=== PATIENT | female | born 1935 | race Caucasian/White ===

== ENCOUNTER 2017-10-15 14:06 | Outpatient (CLI) ==
[2017-10-21 04:02] VITALS: BMI 25.2
== END 2017-10-15 14:07 | disposition home or self-care (01) ==
LOC: NONPT 14:06
PROVIDERS: ATTEND Emergency Medicine
DX: R30.0 Dysuria (principal)
CPT/HCPCS: 81001; 87086; 87186

== ENCOUNTER 2017-10-21 03:51 | Inpatient (IN) ==
[2017-10-21] MEDS ORDERED: MORPHINE 2 MG/ML SYRINGE IM STA (04:07)
[2017-10-21] MEDS ORDERED: ZOFRAN 4 MG/2 ML IM STA (04:07)
--- NOTE | 2017-10-21 04:11 | ED.PDOC ---
General ED Provider: Dr. VICENTE MULLER Chief Complaint: Chest Pain Stated Complaint: Patient is sent from the [place] for the chest pain, and elevated BP. given 2 nitro and asa. now pain free. c/o neck and lower back pain, Time Seen by Physician: 04:09 Mode of Arrival: Ambulance Information Source: Patient, EMT Primary Care Provider: [facility] Nursing and Triage Documentation Reviewed and Agree: Yes Does patient meet sepsis criteria?: Yes If yes, has appropriate treatment been initiated?: No System Inflammatory Response Syndrome: Not Applicable Sepsis Protocol: For patient's 13 years and over: Temp is 96.8 and below OR 101 and greater Pulse >90 BPM Resp >20/minute Acutely Altered Mental Status Are patient's symptoms suggestive of a new infection, such as: -Pneumonia -Skin, Soft Tissue -Endocarditis -UTI -Bone, Joint Infection -Implantable Device -Acute Abdominal Infection -Wound Infection -Meningitis -Blood Stream Catheter Infection -Unknown Cardiovascular Complaint Exam - Chest Pain Complaint/Exam Onset: Gradual Symptoms Are: Resolved Timing: Constant Initial Severity: Moderate Current Severity: Moderate Location: Reports: Midsternal Pain Radiates: Reports: Back Character: Reports: Dull, Aching Aggravating: Reports: None Alleviating: Reports: Nitro, EMS treatment Associated Signs and Symptoms: Reports: Nausea, Back pain. Denies: Diaphoresis , Vomiting, Fever, Palpitations, Cough, Hemoptysis, Abdominal pain, Dizziness, Short of air, Calf pain, Calf swelling Related History: Reports: Similar episode Related Surgical History: Reports: None History of Healthcare-Acquired Pneumonia: Reports: No AMI/ACS Risk Factors: Reports: Nitroglycerine use, Hypertension TAD Risk Factors: Reports: None Pulmonary Embolism Risk Factors: Reports: None Prior Care for this Complaint: No Recent Stress Test: No Recent Echo/LV Function: No JVD Present: No Subcutaneous Emphysema Present: No Diminshed Breath Sounds: No Reproducible Chest Wall Pain: No Bilateral Pulses Present: No Unequal Pulses Noted: No If Risk Factors for AMI/ACS Consider: EKG, Cardiac Enzymes, Serial Studies Differential Diagnoses: ACS, Stable Angina Quality Indicators For Acute DC or Cardiac Chest Pain: EKG in 10min. Review of Systems - Review Of Systems Constitutional: Reports: No symptoms Eyes: Reports: No symptoms Ears, Nose, Mouth, Throat: Reports: No symptoms Respiratory: Reports: No symptoms Cardiac: Reports: Chest pain GI: Reports: No symptoms : Reports: No symptoms Musculoskeletal: Reports: No symptoms Skin: Reports: No symptoms Neurological: Reports: No symptoms Endocrine: Reports: No symptoms Hematologic/Lymphatic: Reports: No symptoms All Other Systems: Reviewed and Negative Past Medical History - Past Medical History Previously Healthy: Yes Endocrine: Reports: Dyslipidemia Cardiovascular: Reports: Hypertension, CHF Respiratory: Reports: None Hematological: Reports: Anemia Gastrointestinal: Reports: GERD Genitourinary: Reports: None Neuro/Psych: Reports: Anxiety, Depression Musculoskeletal: Reports: Arthritis, Back Pain, Joint Pain Cancer: Reports: None Last Menstrual Period: UNKNOWN - Surgical History General Surgical History: Reports: Hysterectomy, Appendectomy, Cholecystectomy - Family History Family History: Reports: None - Social History Smoking Status: Never smoker Hx Substance Use: No Alcohol Screening: None - Immunizations Tetanus Shot up to Date: (UNKNOWN) Physical Exam - Physical Exam Appearance: Ill-appearing, Thin Ill-appearing: Mild Pain Distress: Mild Eyes: EOMI, Conjunctiva clear ENT: Ears normal, Nose normal, Oropharynx normal Respiratory: Airway patent, Breath sounds clear, Breath sounds equal, Respirations nonlabored Cardiovascular: RRR, Pulses normal, No rub, No murmur GI/: Soft, Nontender, No masses, Bowel sounds normal, No Organomegaly Musculoskeletal: Normal strength, ROM intact, No edema, No calf tenderness Skin: Warm, Dry, Normal color Neurological: Sensation intact, Motor intact, Reflexes intact, Cranial nerves intact, Alert, Oriented Psychiatric: Affect appropriate, Mood appropriate Interpretation - Radiology Interpretation Radiology Interpretation By: Radiologist Radiology Results: Positive Exam Interpreted: CT Scan Critical Care Note - Critical Care Note Total Time (mins): 30 Course - Course Hematology/Chemistry: 10/21/17 04:30 10/21/17 04:30 Orders, Labs, Meds: Lab Review 10/21/17 10/21/17 10/21/17 04:30 04:30 04:30 WBC 6.20 RBC 3.29 L Hgb 9.7 L Hct 28.3 L MCV 86.0 MCH 29.5 MCHC 34.3 RDW Coeff of Viviana 13.6 Plt Count 192 Immature Gran % (Auto) 2.1 Neut % (Auto) 66.7 Lymph % (Auto) 9.7 L [place] % (Auto) 20.0 H Eos % (Auto) 1.0 Baso % (Auto) 0.5 Immature Gran # (Auto) 0.1 Neut # (Auto) 4.1 Lymph # (Auto) 0.6 [place] # (Auto) 1.2 Eos # (Auto) 0.1 Baso # (Auto) 0.0 D-Dimer (Manual) Sodium 128 L Potassium 4.4 Chloride 95 L Carbon Dioxide 26 Anion Gap 11.4 BUN 13 Creatinine 0.70 Estimated GFR (MDRD) 81.00 BUN/Creatinine Ratio 18.57 Glucose 91 Calcium 8.5 Total Bilirubin 0.3 AST 21 ALT 19 Alkaline Phosphatase 81 Total Creatine Kinase 162 CK-MB (CK-2) 2.4 CK-MB (CK-2) % 1.12364 Troponin I 0.0500 B-Natriuretic Peptide 354 H Total Protein 5.7 L Albumin 2.4 L Globulin 3.3 Albumin/Globulin Ratio 0.73 Amylase 30 Lipase 8 10/21/17 04:30 WBC RBC Hgb Hct MCV MCH MCHC RDW Coeff of Viviana Plt Count Immature Gran % (Auto) Neut % (Auto) Lymph % (Auto) [place] % (Auto) Eos % (Auto) Baso % (Auto) Immature Gran # (Auto) Neut # (Auto) Lymph # (Auto) [place] # (Auto) Eos # (Auto) Baso # (Auto) D-Dimer (Manual) 531.98 Sodium Potassium Chloride Carbon Dioxide Anion Gap BUN Creatinine Estimated GFR (MDRD) BUN/Creatinine Ratio Glucose Calcium Total Bilirubin AST ALT Alkaline Phosphatase Total Creatine Kinase CK-MB (CK-2) CK-MB (CK-2) % Troponin I B-Natriuretic Peptide Total Protein Albumin Globulin Albumin/Globulin Ratio Amylase Lipase Orders Category Date Time Status EKG-(ED ONLY) Stat CARDIO 10/21/17 04:07 Completed AMYLASE Stat LAB 10/21/17 04:30 Completed B-TYPE NATRIURETIC PEPTIDE Stat LAB 10/21/17 04:30 Completed CBC W/ AUTO DIFF Stat LAB 10/21/17 04:30 Completed COMPREHENSIVE METABOLIC PANEL Stat LAB 10/21/17 04:30 Completed CREATINE KINASE Stat LAB 10/21/17 04:30 Completed D-DIMER Stat LAB 10/21/17 04:30 Completed LIPASE Stat LAB 10/21/17 04:30 Completed TROPONIN I Stat LAB 10/21/17 04:30 Completed URINALYSIS C & S IF INDICATED Stat LAB 08/07/18 04:07 Uncollected Morphine Sulfate [Morphine 2 mg/ml Syringe] MEDS 10/21/17 04:26 Discontinued 2 mg IVP ONCE STA Ondansetron HCl/Pf [Zofran 4 mg/2 ml] MEDS 10/21/17 04:26 Discontinued 4 mg IVP ONCE STA CT CHEST W/O CONTRAST Stat RADS 10/21/17 04:07 Completed Medications Discontinued Medications Generic Name Dose Route Start Last Admin Trade Name Sbq PRN Reason Stop Dose Admin Morphine Sulfate 2 mg 10/21/17 04:26 10/21/17 04:31 Morphine 2 Mg/Ml Syringe IVP 10/21/17 04:27 2 mg ONCE STA Administration Ondansetron HCl 4 mg 10/21/17 04:26 10/21/17 04:32 Zofran 4 Mg/2 Ml IVP 10/21/17 04:27 4 mg ONCE STA Administration Vital Signs: Temp Pulse Resp BP Pulse Ox 10/21/17 03:48 98.2 F 70 16 135/77 95 MYLES Risk Score MYLES Risk Score: Risk Score Odds of by 30D 0 0.1 (0.1-0.2) 1 0.3 (0.2-0.3) 2 0.4 (0.3-0.5) 3 0.7 (0.6-0.9) 4 1.2 (1.0-1.5) 5 2.2 (1.9-2.6) 6 3.0 (2.5-3.6) 7 4.8 (3.8-6.1) Departure - Departure Time of Disposition: 06:29 Disposition: ADMITTED INPATIENT Discharge Problem: Chest pain Pneumonia Qualifiers: Pneumonia type: due to unspecified organism Laterality: left Lung location: lower lobe of lung Qualified Code(s): J18.1 - Lobar pneumonia, unspecified organism Instructions: Chest Pain (ED) Condition: Stable Pt referred to PMD for follow-up: Yes IPMP verified?: No Allergies/Adverse Reactions: Allergies digoxin Allergy (Severe, Unverified 10/21/17 04:00) SOB Home Medications: Ambulatory Orders Acetaminophen [Tylenol] 325 mg PO PRN PRN 10/21/17 Amiodarone HCl 200 mg PO DAILY 10/21/17 Apixaban [Eliquis] 5 mg PO BID 10/21/17 Bisacodyl [Dulcolax] 10 mg PO DAILY 10/21/17 Bumetanide 0.5 mg PO DAILY 10/21/17 Buspirone HCl 5 mg PO DAILY 10/21/17 Docusate Sodium [Colace] 100 mg PO DAILY 10/21/17 Esomeprazole Magnesium [Nexium] 40 mg PO DAILY 10/21/17 Hydroxyzine Pamoate [Vistaril] 25 mg PO BID 10/21/17 Levothyroxine Sodium [Synthroid] 50 mcg PO DAILY 10/21/17 Lidocaine [Lidoderm] 1 patch EXTERNAL DAILY 10/21/17 Lisinopril [Zestril] 5 mg PO DAILY 10/21/17 Melatonin/Pyridoxine [Melatonin 5 mg Tablet] 1 tab PO BEDTIME 10/21/17 Morphine Sulfate [Ms Contin] 15 mg PO BID 10/21/17 Nitrofurantoin Macrocrystal [Macrodantin] 100 mg PO BID 10/21/17 Nitroglycerin [Nitrostat] 0.4 mg PO Q5MIN PRN 10/21/17 Ondansetron HCl [Zofran] 4 mg PO Q6H PRN 10/21/17 Oxybutynin Chloride [Ditropan Xl] 15 mg PO DAILY 10/21/17 Oxycodone HCl/Acetaminophen [Oxycodone-Acetaminophen 10-325] 1 tab PO QID Polyethylene Glycol 3350 [Miralax] 17 gm PO DAILY 10/21/17 Disposition Discussed With: Patient
[2017-10-21] MEDS ORDERED: ZOFRAN 4 MG/2 ML IVP STA (04:26)
[2017-10-21] MEDS ORDERED: MORPHINE 2 MG/ML SYRINGE IVP STA (04:26)
--- NOTE | 2017-10-21 04:44 | CT ---
EXAM: CT of the chest without contrast. HISTORY: Chest pain. PROCEDURE: Contiguous axial CT images of the chest without contrast with coronal and sagittal reform ats. FINDINGS: The heart is mildly enlarged. The thoracic aorta is within normal limits in diameter. The re are atherosclerotic calcifications in the thoracic aorta. There are coronary artery calcifications . There are calcified hilar lymph nodes. There is minimal left basilar consolidation. There is minim al right basilar dependent atelectasis. There are anterior wedging deformities of the T7 and L2 verte bral bodies with up to 25% loss of vertebral body height, age indeterminate. There is a dorsal colum n stimulator. There is a moderate hiatal hernia. There is a 1.9 cm indeterminate left adrenal nodule. The right adrenal gland and liver are normal in appearance. Impression: Minimal left basilar consolidation consistent with atelectasis and/or pneumonia. Minimal right basilar dependent atelectasis. Cardiomegaly. Atherosclerotic vascular disease. Moderate hiatal hernia. Anterior wedging deformities of the T7 and L2 vertebral bodies as described, age indeterminate. 1.9 cm indeterminate left adrenal nodule. Recommend follow-up CT in 3 months to confirm stability.
[2017-10-21] MEDS ORDERED: TYLENOL PO PRN (06:30)
[2017-10-21] MEDS ORDERED: ZOFRAN TAB PO PRN (06:34)
[2017-10-21] MEDS ORDERED: NITROSTAT SL PRN (06:34)
[2017-10-21 08:10] VITALS: BMI 25.4
[2017-10-21] MEDS: LIDODERM PATCH 5% TP SCH (08:50)
[2017-10-21] MEDS: SODIUM CHLORIDE 1,000 ML IV SCH ×2 (08:51→23:24)
[2017-10-21] MEDS: ROCEPHIN 1 GM in SODIUM CHLORIDE 50 ML IV SCH ×2 (08:51→09:22)
[2017-10-21] MEDS: DULCOLAX PO SCH (08:51)
[2017-10-21] MEDS: MIRALAX PO SCH (08:51)
[2017-10-21] MEDS: DITROPAN XL PO SCH (08:52)
[2017-10-21] MEDS: COLACE PO SCH (08:52)
[2017-10-21] MEDS: SOLU-MEDROL 40 MG IVP SCH ×3 (08:52→20:38)
[2017-10-21] MEDS: PROTONIX PO SCH (08:52)
[2017-10-21] MEDS: BUSPAR PO SCH (08:52)
[2017-10-21] MEDS: ZESTRIL PO SCH (08:53)
[2017-10-21] MEDS: VISTARIL PO SCH ×2 (08:53→20:38)
[2017-10-21] MEDS: BUMEX PO SCH (08:53)
[2017-10-21] MEDS: CORDARONE PO SCH (08:53)
[2017-10-21] MEDS: SYNTHROID PO SCH (08:53)
[2017-10-21] MEDS: PERCOCET 10-325 PO SCH ×4 (08:54→20:39)
[2017-10-21] MEDS: ELIQUIS PO SCH ×2 (08:57→20:39)
[2017-10-21] MEDS ORDERED: MS CONTIN PO SCH (09:00)
[2017-10-21] MEDS ORDERED: NON-FORMULARY MEDICATION (Bumetanide [Bumetanide] 0.5 MG) PO SCH (09:00)
[2017-10-21] MEDS ORDERED: NON-FORMULARY MEDICATION (Esomeprazole Magnesium [Nexium] 40 MG) PO SCH (09:00)
[2017-10-21] MEDS ORDERED: NON-FORMULARY MEDICATION (Oxybutynin Chloride [Ditropan Xl] 15 MG) PO SCH (09:00)
[2017-10-21] MEDS ORDERED: NON-FORMULARY MEDICATION (Buspirone Hcl [Buspirone Hcl] 5 MG) PO SCH (09:00)
[2017-10-21] MEDS: DUONEB NEB SCH ×3 (11:13→22:43)
[2017-10-21] MEDS: MS CONTIN PO SCH (20:39)
[2017-10-21] MEDS: MELATONIN PO SCH (20:39)
[2017-10-21] MEDS: PYRIDOXINE PO SCH (20:39)
[2017-10-22] MEDS: DUONEB NEB SCH ×4 (04:53→22:25)
[2017-10-22] MEDS: PROTONIX PO SCH (05:34)
[2017-10-22] MEDS: SYNTHROID PO SCH (05:34)
[2017-10-22] MEDS: DULCOLAX PO SCH (09:09)
[2017-10-22] MEDS: ZESTRIL PO SCH (09:09)
[2017-10-22] MEDS: MIRALAX PO SCH (09:09)
[2017-10-22] MEDS: BUMEX PO SCH (09:09)
[2017-10-22] MEDS: COLACE PO SCH (09:10)
[2017-10-22] MEDS: DITROPAN XL PO SCH (09:10)
[2017-10-22] MEDS: MS CONTIN PO SCH ×2 (09:10→21:16)
[2017-10-22] MEDS: VISTARIL PO SCH ×2 (09:10→21:16)
[2017-10-22] MEDS: CORDARONE PO SCH (09:10)
[2017-10-22] MEDS: BUSPAR PO SCH (09:10)
[2017-10-22] MEDS: ELIQUIS PO SCH ×2 (09:10→21:11)
[2017-10-22] MEDS: PERCOCET 10-325 PO SCH ×4 (09:10→21:16)
[2017-10-22] MEDS: ROCEPHIN 1 GM in SODIUM CHLORIDE 50 ML IV SCH (09:11)
[2017-10-22] MEDS: LIDODERM PATCH 5% TP SCH (09:12)
[2017-10-22] MEDS: SOLU-MEDROL 40 MG IVP SCH ×2 (10:18→21:12)
--- NOTE | 2017-10-22 10:48 | PN ---
DATE OF SERVICE: 10/21/17 SUBJECTIVE: The patient was seen and examined in the emergency room. Agree with the present management. TIME SPENT: More than 35 minutes [email or web address]
[2017-10-22] MEDS: ZOFRAN 4 MG/2 ML IVP PRN (11:49)
--- NOTE | 2017-10-22 15:46 | RS.PTINEVL ---
Subjective - Patient information Date of Evaluation: 10/22/17 Date of Arrival on Unit: 10/21/17 Admitted From:: Custodial Diagnosis: pneumonia, chest pain, elevated BP Usual Living Arrangement: Custodial Living Arrangement Comments: Resides at [facility] Environment: Level/No stairs Medical History: Hypertension, CHF, Arthritis Medical History Comments:: anxiety, depressioin, GERD, ASHD, back pain, CAD, Afib LATEX ALLERGY?: No Surgical History: Lumbar Spine, Cholecystectomy Medications: see chart Subjective Information/ Patient Comments:: pt states "I am not doing any good." pt states "I don't know where I am going to go." - Level of function Prior to this admission, the patient could do the following:: Partially Dependent Ambulation Abilities prior to this admission: pt poor historian, states that she walked sometimes with walker. Current Level of Function: Partially Dependent Current Equipment Used at Home: rwx Pain Assessement - Location lumbar Description: Aching Intensity: 6 Pain Behavior: Facial Grimacing Pain Aggravating Factors: Changing Position, Standing, Walking Pain Alleviating Factors: Medication Interventions - Objective Patient Orientation: Person, Place Current Interventions: IV's Range of Motion - ROM Right Upper Extremity AROM: Moderate limitation (pt with limited R shld flex.) Left Upper Extremity AROM: WFL's Right Lower Extremity AROM: WFL's Left Lower Extremity AROM: WFL's Muscle Strength - Muscle Strength Right Upper Extremity Strength: Mild Weakness (shld flex 3-/5, elbow flex/ext 4- /5, decreased block breaker) Left Upper Extremity Strength: Mild Weakness (shld flex 4-/5, elbow flex/ext 4/5 , decreased block breaker strength.) Right Lower Extremity Strength: Mild Weakness (hip flex 4-/5, knee flex/ext 4/5 , ankle DF/PF 4/5) Left Lower Extremity Strength: Mild Weakness (hip flex 4-/5, knee flex/ext 4/5, ankle DF/PF 4/5) Sensation - Sensation Right Upper Extremity Sensation: Intact/Normal Left Upper Extremity Sensation: Intact/Normal Right Lower Extremity Sensation: Intact/Normal Left Lower Extremity Sensation: Intact/Normal Palpation Palpation Findings: Tenderness Comments:: tenderness to palpation BLE Balance - Sitting Balance and Reactions Static Sitting Balance: Fair Dynamic Sitting Balance: Fair Sitting Equilibrium Reactions: Delayed Left, Delayed Right Sitting Protective Reactions: Delayed Left, Delayed Right - Standing Balance and Reactions Static Standing Balance: Poor Dynamic Standing Balance: Poor Standing Equilibrium Reactions: Delayed Left, Delayed Right Standing Protective Reactions: Delayed Left, Delayed Right Functional Mobility - Bed Mobility Rolling R/L: CGA Supine to Sit: Min Assist Sit to Supine: Min Assist - Transfers Sit to Stand: Min Assist Stand to Sit: Min Assist - Safety Awareness Safety Awareness: Fair RUTH INDEX SCORE: n/a Ambulation - Ambulation Assistive Device Used: Rolling Walker Orthotic/Prosthetic Device: No Distance: 100ft Assistance needed with Ambulation: CGA Quality of Ambulation: CGA x 1 +1 for IV Gait Deviations: Narrow Based gait, Forward posture, Short stride Treatment time - Time with patient Length of Evaluation: 24 Total treatment time: 24 Patient Education - Education Patient Education: Activity Modification, Education of Plan of Care Teaching Recipient: Patient Teaching Methods: Discussion (discussion with patient regarding POC) Assessment - Assessment Problem List:: Decreased level of function, Requires training/education, Decreased safety/Risk of falls, Weakness, Pain limits previous level of function , Cognitive status limits abilities Rehab Potential: Good Further Therapy Indicated?: Yes Candidate for Swing Bed for Therapy Services?: pt may not be a candidate for swing bed due to resident of snf Evaluation Complexity: HISTORY: Medium (HTN, pneumonia, CHF, Afib, ), EXAM OF BODY SYSTEMS: Medium (pain, strength, balance, gait,), CLINICAL PRESENTATION: Medium, CLINICAL DECISION MAKING: Medium Short Term Goals GOAL #1: pt demonstrate rolling and scooting up in bed with bedrails Goal to be met by: 10/25/17 GOAL #2: pt transfer sup to/from sit to/from stand CGA Goal to be met by: 10/25/17 GOAL #3: pt amb with rwx 125ft with CGA with no LOB Goal to be met by: 10/25/17 GOAL #4: pt with improved BLE strength 4/5 Goal to be met by: 10/25/17 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 R 26.81 balance impaired. M62.81 muscle weakness. Has the Physician been added for Co-signature?: Yes
[2017-10-22] MEDS ORDERED: BUSPAR PO ONE (16:32)
[2017-10-22] MEDS: PYRIDOXINE PO SCH (21:12)
[2017-10-22] MEDS: MELATONIN PO SCH (21:12)
[2017-10-23] MEDS: SODIUM CHLORIDE 1,000 ML IV SCH (01:51)
[2017-10-23] MEDS: DUONEB NEB SCH ×4 (04:36→21:52)
[2017-10-23] MEDS: SYNTHROID PO SCH (05:56)
[2017-10-23] MEDS: PROTONIX PO SCH (05:56)
[2017-10-23] MEDS ORDERED: CEPACOL SORE THROAT LOZENGE MUCOUSMEMB PRN (08:24)
[2017-10-23] MEDS ORDERED: CITRATE OF MAGNESIA PO STA (08:26)
[2017-10-23] MEDS: ROCEPHIN 1 GM in SODIUM CHLORIDE 50 ML IV SCH (08:32)
[2017-10-23] MEDS: BUSPAR PO SCH (08:32)
[2017-10-23] MEDS: SOLU-MEDROL 40 MG IVP SCH (08:32)
[2017-10-23] MEDS: MIRALAX PO SCH (08:32)
[2017-10-23] MEDS: ZOFRAN 4 MG/2 ML IVP PRN (08:32)
[2017-10-23] MEDS: ELIQUIS PO SCH (08:33)
[2017-10-23] MEDS: BUMEX PO SCH (08:33)
[2017-10-23] MEDS: DITROPAN XL PO SCH (08:34)
[2017-10-23] MEDS: VISTARIL PO SCH (08:34)
[2017-10-23] MEDS: ZESTRIL PO SCH (08:34)
[2017-10-23] MEDS: MS CONTIN PO SCH (08:34)
[2017-10-23] MEDS: PERCOCET 10-325 PO SCH ×3 (08:34→16:52)
[2017-10-23] MEDS: DULCOLAX PO SCH (08:34)
[2017-10-23] MEDS: COLACE PO SCH (08:34)
[2017-10-23] MEDS: CORDARONE PO SCH (08:35)
[2017-10-23] MEDS: LIDODERM PATCH 5% TP SCH (09:32)
--- NOTE | 2017-10-23 09:58 | PN ---
DATE OF SERVICE: 10/22/17 SUBJECTIVE: The patient was admitted from the emergency room for left lower lobe pneumonia and Chest pain. The patient complains about the pain from lower back to the upper back and says that she has been more anxious. She gets the Buspar and says that it is not helping. REVIEW OF SYSTEMS: CONSTITUTIONAL: No fever, no chills. HEENT: Normal. ENDOCRINE: No weight gain, no weight loss. CVS: No angina symptoms. No CHF symptoms. No palpitations. No atypical chest pain for CAD. No shortness of breath. No PND, no orthopnea. RESPIRATORY: No cough, no hemoptysis. GI: No nausea, no vomiting. No abdominal pain. : No hematuria. No polyuria. MUSCULOSKELETAL: No joint swelling. PSYCHIATRIC: Not anxious. No depression. No suicidal thoughts. No homicidal thoughts. SKIN: Intact. No rash. PHYSICAL EXAMINATION: V/S: Blood pressure 134/74, respiratory rate 20, heart rate 72, temperature 98.0 with saturation 98 HEENT: Normocephalic, atraumatic. Mucosa dry, Pallor positive. No icterus. NECK: Supple. No JVD, no carotid bruit. No lymphadenopathy. LUNGS: Decreased and basilar crackles. No rales or rhonchi. HEART: S1, S2 normal. No S3. No murmur, gallop or regurgitation. ABDOMEN: Soft, nontender. Bowel sounds active. No rigidity. No rebound or guarding. No CVA tenderness. EXTREMITIES: No cyanosis, clubbing or pedal edema. MUSCULOSKELETAL: No joint swelling. NEUROLOGIC: Awake, alert. No focal deficit. LYMPHATIC: No lymph nodes palpable. SKIN: Intact. LABS: WBC 6.88, hgb 10.2, hct 39.6, plt count 254, sodium 128, potassium 4.3, chloride 94, bicarb 24, BUN 15, creatinine 0.69 and glucose 151. ASSESSMENT: 1. Left lower lobe pneumonia 2. Hyponatremia 3. Urinary tract infection organism E-coli 4. Hyponatremia 5. Anemia 6. Chronic pain syndrome 7. CAD 8. Atrial fibrillation 9. Hypertension 10.Dyslipidemia 11.Hypothyroidism 12.Depression 13.Anxiety PLAN: 1. Continue Rocephin 2. Eliquis 3. Bumex 4. DUO NEBS 5. Solu-Medrol 6. Daily I&O's TIME SPENT: More than 35 minutes JAY
--- NOTE | 2017-10-23 14:26 | DI ---
EXAM: Two views of the chest. History: Cough. Comparison: Chest CT 10/21/2017 Findings: Heart is enlarged. Hiatal hernia. Mild left basilar infiltrate and trace left pleural ef fusion. No pneumothorax. Atherosclerotic vascular calcifications. Spinal stimulator device. Surgi sang clips seen within the bilateral axillary regions. No acute osseous abnormalities. Impression: 1. Cardiomegaly without evidence for pulmonary edema. 2. Mild left basilar infiltrate and trace left pleural effusion. 3. Hiatal hernia
[2017-10-24] MEDS: DUONEB NEB SCH ×3 (04:47→14:23)
[2017-10-24] MEDS: ELIQUIS PO SCH ×2 (05:15→10:15)
[2017-10-24] MEDS: PYRIDOXINE PO SCH (05:17)
[2017-10-24] MEDS: MELATONIN PO SCH (05:17)
[2017-10-24] MEDS: MS CONTIN PO SCH ×2 (05:17→10:27)
[2017-10-24] MEDS: PERCOCET 10-325 PO SCH ×4 (05:17→16:41)
[2017-10-24] MEDS: VISTARIL PO SCH ×2 (05:18→10:10)
[2017-10-24] MEDS: SODIUM CHLORIDE 1,000 ML IV SCH (05:18)
[2017-10-24] MEDS: SOLU-MEDROL 40 MG IVP SCH ×2 (05:18→10:10)
[2017-10-24] MEDS: PROTONIX PO SCH (05:37)
[2017-10-24] MEDS: SYNTHROID PO SCH (05:37)
[2017-10-24] MEDS: MIRALAX PO SCH (09:00)
[2017-10-24] MEDS: ROCEPHIN 1 GM in SODIUM CHLORIDE 50 ML IV SCH (10:08)
[2017-10-24] MEDS: LIDODERM PATCH 5% TP SCH (10:09)
[2017-10-24] MEDS: BUMEX PO SCH (10:11)
[2017-10-24] MEDS: CORDARONE PO SCH (10:12)
[2017-10-24] MEDS: BUSPAR PO SCH (10:12)
[2017-10-24] MEDS: COLACE PO SCH (10:13)
[2017-10-24] MEDS: ZESTRIL PO SCH (10:13)
[2017-10-24] MEDS: DITROPAN XL PO SCH (10:13)
[2017-10-24] MEDS: DULCOLAX PO SCH (10:14)
--- NOTE | 2017-10-24 10:15 | PN ---
DATE OF SERVICE: 10/23/17 SUBJECTIVE: The patient is admitted with left lower lobe pneumonia, still coughing. No fever , no chills. Urinary tract infection, organism E. coli. Complains of nausea. REVIEW OF SYSTEMS: CONSTITUTIONAL: No fever, no chills. HEENT: Normal. ENDOCRINE: No weight gain, no weight loss. CVS: No angina symptoms. No CHF symptoms. No palpitations. No atypical chest pain for CAD. No shortness of breath. No PND, no orthopnea. RESPIRATORY: No cough, no hemoptysis. GI: Nausea. No vomiting. No abdominal pain. : UTI. MUSCULOSKELETAL: No joint swelling. PSYCHIATRIC: Not anxious. No depression. No suicidal thoughts. No homicidal thoughts. SKIN: Intact. No rash. PHYSICAL EXAMINATION: V/S: BP 164/87, respiratory rate 16, heart rate 79, temperature 98.2. HEENT: Normocephalic, atraumatic. Mucosa dry. Pallor positive. No icterus. NECK: Supple. No JVD, no carotid bruit. No lymphadenopathy. LUNGS: Decreased breath sounds. Basilar crackles. No rales or rhonchi. HEART: S1, S2 normal. No S3. No murmur, gallop or regurgitation. ABDOMEN: Soft, nontender. Bowel sounds active. No rigidity. No rebound or guarding. No CVA tenderness. EXTREMITIES: No cyanosis, clubbing or pedal edema. MUSCULOSKELETAL: No joint swelling. NEUROLOGIC: Awake, alert. No focal deficit. LYMPHATIC: No lymph nodes palpable. SKIN: Intact. LABS: White count 8.80, hemoglobin 10.4, hematocrit 30.4, platelet count 313. Sodium 128, potassium 4.7, chloride 95, bicarb 19, BUN 0.7, glucose 123. ASSESSMENT: 1. LEFT LOWER LOBE PNEUMONIA 2. UTI ORGANISM E. COLI 3. CORONARY ARTERY DISEASE 4. HYPERTENSION 5. DYSLIPIDEMIA 6. OSTEOARTHRITIS 7. DJD SPINE 8. CHRONIC PAIN SYNDROME 9. MULTIPLE PAIN MEDICATIONS 10. ANXIETY PLAN: 1. Continue Solu-Medrol 2. Continue breathing treatment 3. Daily I & O 4. IV fluids at 40 mL/hr 5. Rocephin 1 gm daily 6. Atrial fibrillation on Eliquis TIME SPENT: More than 35 minutes MTDD
[2017-10-24 14:30] VITALS: TEMP 97.4
[2017-10-24 17:37] VITALS: BP 118/68
--- NOTE | 2017-10-27 10:38 | HP ---
DATE OF SERVICE: 10/21/17 SUBJECTIVE: This 82-year-old female patient was seen and examined in the emergency room by myself. I agree with the plan and the progress note. JAY
--- NOTE | 2017-11-13 08:52 | DS ---
DATE OF SERVICE: 10/24/17 FINAL DIAGNOSIS: 1. Pneumonia 2. Urinary tract infection 3. Dehydration 4. Hyponatremia 5. Atrial fibrillation on Eliquis 6. Hypertension 7. CAD 8. CHF 9. Hypothyroidism 10.ASHD 11.GERD 12.Osteoarthritis 13.Left adrenal nodule 14.Back surgery 15.Appendectomy 16.Hysterectomy 17.Cholecystectomy 18.Chronic pain syndrome DISCHARGE INSTRUCTIONS: Discharge the patient back to the [facility]. Continue medication as listed. Decrease the Bumex to 0.5mg every other day, change Vistaril 25mg to PRN and increase the Buspar to 5mg three times a day. CBC and CMP in one week then as ordered every three months. TSH and Lipids every 6 months. Fall precautions, Decubitus ulcer precautions. Can participate in the [facility]dc activities. Continue the rest of the home medications. MEDICATIONS AT DISCHARGE: Nitroglycerin Tylenol Amiodarone Eliquis Dulcolax Nexium Synthroid Lidoderm patch Zestril Melatonin MS Contin Zofran Ditropan Miralax Keflex NEW PRESCRIPTIONS: Keflex 500mg twice a day for 5 days Prednisone 10mg twice a day for 5 days Zofran 4mg Q 6 hour PRN DIET INSTRUCTIONS: Regular ACTIVITY: Up to chair, dining room with meals Physical and Occupational therapy evaluate and treat DISEASE SPECIFIC EDUCATION: Dehydration Urinary tract infection Pneumonia and needing for the pneumonia vaccination been discussed. Polypharmacy and multiple pain medications; side effects of constipation and dependency been discussed. HOSPITAL COURSE: Edna Schmidt who is a 82 year old female to the emergency room with cough and congestion. She was sent to the emergency room for the chest pain. Given some Nitroglycerin. The patient denies of having any chest pain at the time of the evaluation. Temperature was afebrile. CT chest done which showed the minimal left basilar consolidation consistent with the pneumonia, cardiomegaly and Arthrosclerosis and moderate hiatal hernia. Urine was positive for the urinary tract infection; Nitrate negative and leukocyte esterase positive, 3+ bacteria. At that time the patient was admitted to the hospital for the IV antibiotics and breathing treatments and for dehydration. The patient was started on the Rocephin, IV fluids at 40ml per hour, DUO NEBS and continue the home medication. Solu-Medrol was also given 40 Q 12 hours. With the given treatment the patient started gradually feeling better but the patient has a chronic problem like back pain, she kept complaining about the back pain and said she has been more anxious. Buspar was made to three times a day and strictly said that we could not increase any pain medications as the patient was already on the MS Contin and Lidoderm patch. In review of her age and multiple medical problems and risk of falls and addiction the pain medication was not increased. Gradually the patient started feeling better and anxiety levels were improved. Repeat chest x-ray showed the betterment of the pneumonia. The patient is being discharged back to the [facility]. TIME SPENT: MORE THAN 65 MINUTES [id number]
== END 2017-10-24 18:45 | DRG 551 ==
LOC: ED 03:51 → MEDSURG A 06:59
PROVIDERS: ADMIT Emergency Medicine; ATTEND Emergency Medicine
DX: M54.2 Cervicalgia (principal); J18.1 Lobar pneumonia, unspecified organism; N39.0 Urinary tract infection, site not specified; E87.1 Hypo-osmolality and hyponatremia; E86.0 Dehydration; E03.9 Hypothyroidism, unspecified; I10 Essential (primary) hypertension; I51.7 Cardiomegaly; I48.91 Unspecified atrial fibrillation; I25.10 Atherosclerotic heart disease of native coronary artery without angina pectoris; I50.9 Heart failure, unspecified; M54.9 Dorsalgia, unspecified; M19.90 Unspecified osteoarthritis, unspecified site; K44.9 Diaphragmatic hernia without obstruction or gangrene; K21.9 Gastro-esophageal reflux disease without esophagitis; G89.4 Chronic pain syndrome; F41.9 Anxiety disorder, unspecified; R11.0 Nausea; Z79.01 Long term (current) use of anticoagulants
CPT/HCPCS: 36415; 80053; 81001; 82150; 82550; 82553; 83690; 83880; 84484; 85025; 85379; 87081; 87086; 93005; 93010; 94640; 96374; 96375; 99284

== ENCOUNTER 2017-11-05 08:49 | Outpatient (CLI) | END 2017-11-05 08:50 | disposition home or self-care (01) | LOC: NONPT 08:49 | PROVIDERS: ATTEND Emergency Medicine | DX: R30.0 Dysuria (principal); R35.0 Frequency of micturition | CPT/HCPCS: 81001; 87086; 87186 ==